=== PATIENT | male | born 1960 | race Caucasian/White ===

== ENCOUNTER 2016-10-10 20:57 | Emergency (ER) | payer MEDICARE, MEDICAID ==
[~2016-10-10] VITALS: Ht 177.8 cm; Wt 86.0 kg
[~2016-10-10 20:57] MED LIST: FLUO40CA9; QUET400T6; UNKNOWN INHALER
[2016-10-10 21:07] VITALS: BP 118/74
== END 2016-10-10 22:22 | disposition home or self-care (01) ==
LOC: ED 22:15
DX: H65.01 Acute serous otitis media, right ear (principal); I10 Essential (primary) hypertension; J44.9 Chronic obstructive pulmonary disease, unspecified
CPT/HCPCS: 99283

== ENCOUNTER 2017-03-26 02:08 | Emergency (ER) | payer MEDICARE ==
[~2017-03-26] VITALS: Ht 177.8 cm; Wt 80.1 kg
[2017-03-26 02:11] VITALS: BP 113/76
[2017-03-26] MEDS ORDERED: DEXAMETHASONE 4 MG TABLET ONE (02:54)
[2017-03-26] MEDS ORDERED: DIPHENHYDRAMINE 25 MG CAPSULE ONE (02:54)
[2017-03-26] MEDS ORDERED: DIPHENHYDRAMINE 25 MG CAPSULE PO ONE (03:00)
[2017-03-26] MEDS ORDERED: DEXAMETHASONE 4 MG TABLET PO ONE (03:00)
== END 2017-03-26 04:20 | disposition home or self-care (01) ==
LOC: ED 04:14
DX: L20.9 Atopic dermatitis, unspecified (principal); Z59.0 Homelessness
CPT/HCPCS: 99283; Q0163

== ENCOUNTER 2017-03-30 01:58 | Emergency (ER) | payer MEDICARE ==
[~2017-03-30] VITALS: Ht 177.8 cm; Wt 80.0 kg
[2017-03-30 02:05] VITALS: BP 121/73
== END 2017-03-30 03:04 | disposition left against medical advice (07) ==
LOC: ED 02:58
DX: R21 Rash and other nonspecific skin eruption (principal); Z53.21 Procedure and treatment not carried out due to patient leaving prior to being seen by health care provider

== ENCOUNTER 2017-04-12 20:42 | Emergency (ER) | payer MEDICARE, MEDICAID ==
[~2017-04-12] VITALS: Ht 177.8 cm; Wt 79.7 kg
[2017-04-12 20:45] VITALS: BP 130/78
== END 2017-04-12 21:42 | disposition home or self-care (01) ==
LOC: ED 21:36
DX: B86 Scabies (principal); R21 Rash and other nonspecific skin eruption; J44.9 Chronic obstructive pulmonary disease, unspecified; I10 Essential (primary) hypertension
CPT/HCPCS: 99283